=== PATIENT | female | born 1950 | race Caucasian/White ===

== ENCOUNTER 2018-05-15 05:50 | Emergency (ER) | payer MEDICAID ==
[~2018-05-15] VITALS: Ht 154.9 cm; Wt 83.0 kg
[~2018-05-15 05:50] MED LIST: CIPR-263
[2018-05-15] MEDS ORDERED: SODIUM CHLORIDE 0.9% 1,000 ML IV ONE (06:32)
[2018-05-15] MEDS ORDERED: KETOROLAC 30MG/ML VIAL IV STA (06:32)
[2018-05-15 07:09] LABS: BASOPHILS % 0.5 % (0.0-2.0); EOSINOPHILS % 2.8 % (0.0-5.0); HEMATOCRIT. 43.2 % (36.0-48.0); HEMOGLOBIN. 14.8 g/dL (12.0-16.0); LYMPHOCYTES % 26.2 % (20.0-50.0); MEAN CORPUSCULAR HEMOGLOBIN 31.7 pg (28.0-32.0); MEAN CORPUSCULAR VOLUME 92.7 fL (81.0-99.0); MEAN PLATELET VOLUME 9.4 fl (7.4-10.4); MONOCYTES % 9.9 % (2.0-8.0); NEUTROPHILS % 60.6 % (40.0-76.0); PLATELET 230 x1000/uL (130-400); RED BLOOD CELL COUNT 4.66 mill/uL (4.2-5.4); RED CELL DISTRIBUTION WIDTH 13.3 % (11.6-14.6)
[2018-05-15 07:15] LABS: CHLORIDE 104 mEq/L (98-107)
[2018-05-15 07:26] LABS: CLARITY URINE CLOUDY (CLEAR); COLOR URINE YELLOW (YELLOW); KETONES URINE NEGATIVE (NEGATIVE); LEUKOCYTE ESTERASE URINE TRACE (NEGATIVE); NITRITE URINE NEGATIVE (NEGATIVE); OCCULT BLOOD URINE 3+ (NEGATIVE); PROTEIN URINE NEGATIVE (NEGATIVE); SPECIFIC GRAVITY URINE 1.021 (1.005-1.030); UROBILINOGEN URINE 0.2 E.U./dL (0.2-1.0)
[2018-05-15 10:15] VITALS: BP 147/87
== END 2018-05-15 10:17 | disposition home or self-care (01) ==
LOC: ER 05:50
DX: N20.0 Calculus of kidney (principal); N23 Unspecified renal colic; M54.5 Low back pain; E11.9 Type 2 diabetes mellitus without complications; E78.00 Pure hypercholesterolemia, unspecified; Z91.041 Radiographic dye allergy status; Z91.040 Latex allergy status; Z79.899 Other long term (current) drug therapy
CPT/HCPCS: 36415; 76770; 80053; 81003; 83690; 85025; 96374; 99285; J1885; J7030; Z7610

== ENCOUNTER 2020-05-18 09:38 | Inpatient (IN) | payer MEDICARE, MEDICAID ==
[~2020-05-18] VITALS: Ht 165.1 cm; Wt 85.3 kg
[2020-05-18 10:25] LABS: BASOPHILS % 0.6 % (0.0-2.0); EOSINOPHILS % 0.7 % (0.0-5.0); HEMATOCRIT. 50.3 % (36.0-48.0); HEMOGLOBIN. 16.9 g/dL (12.0-16.0); LYMPHOCYTES % 21.5 % (20.0-50.0); MEAN CORPUSCULAR HEMOGLOBIN 31.8 pg (28.0-32.0); MEAN CORPUSCULAR VOLUME 94.3 fL (81.0-99.0); MEAN PLATELET VOLUME 10.2 fl (7.4-10.4); MONOCYTES % 7.3 % (2.0-8.0); NEUTROPHILS % 69.9 % (40.0-76.0); PLATELET 224 x1000/uL (130-400); RED BLOOD CELL COUNT 5.33 mill/uL (4.2-5.4); RED CELL DISTRIBUTION WIDTH 12.9 % (11.6-14.6)
[2020-05-18 10:30] LABS: CHLORIDE 98 mEq/L (98-107)
[2020-05-18 12:10] LABS: BG BASE EXCESS -0.2 mmol/L (-2.0-2.0); BG CARBOXYHEMOGLOBIN 0.9 % (0.5-1.5); BG DEOXYHEMOGLOBIN 5.2 % (0.0-5.0); BG FRACTION INSPIRED OXYGEN 21; BG HCO3 ACT 24.4 mmol/L (22.0-26.0); BG METHEMOGLOBIN 0.2 % (0.0-1.5); BG OXYGEN SATURATION 94.7 % (92.0-98.5); BG OXYHEMOGLOBIN 93.7 % (94.0-97.0); BG PH 7.403 (7.350-7.450); BG PO2 67.8 mmHg (75.0-100.0); BG SAMPLE SITE LEFT RADIAL; BG TOTAL HEMOGLOBIN 17.1 g/dL (12.0-18.0); BG VENT MODE ROOM AIR
[2020-05-18] MEDS: SODIUM CHLORIDE 0.9% 1,000 ML IV SCH (15:16)
[2020-05-18] MEDS ORDERED: ACETAMINOPHEN 325MG TABLET PO PRN (15:30)
[2020-05-18] MEDS ORDERED: MAGNESIUM/ALUMINUM HYDROXIDE/SIMETHICONE 30ML UDC PO PRN (15:30)
[2020-05-18] MEDS ORDERED: CLONIDINE 0.1MG TABLET PO PRN (15:30)
[2020-05-18] MEDS ORDERED: ENOXAPARIN 40MG/0.4ML SYR SUBCUT SCH (15:30)
[2020-05-18] MEDS ORDERED: GUAIFENESIN 200MG/10ML SUGAR FREE UDC PO PRN (15:30)
[2020-05-18] MEDS ORDERED: ONDANSETRON HCL 4MG/2ML INJ IV PRN (15:30)
[2020-05-18] MEDS ORDERED: DOCUSATE SODIUM 100MG CAPSULE PO PRN (15:30)
[2020-05-18] MEDS ORDERED: DEXTROSE 50% WATER 50ML SYRINGE IV PRN (21:15)
[2020-05-18 21:30] VITALS: BP 119/53
[2020-05-18] MEDS: BLOOD SUGAR DIAGNOSTIC STRIP TEST SCH (22:17)
[2020-05-18] MEDS: INSULIN LISPRO 100 UNITS/ML SUBCUT SCH (22:20)
[2020-05-18] MEDS: ENOXAPARIN 30MG/0.3ML SYR SUBCUT SCH (22:21)
[2020-05-19] VITALS (7 sets, daily range): BP systolic 124–151; BP diastolic 67–87
[2020-05-19] MEDS: SODIUM CHLORIDE 0.9% 1,000 ML IV SCH (04:29)
[2020-05-19 06:28] LABS: BASOPHILS % 0.6 % (0.0-2.0); EOSINOPHILS % 3.3 % (0.0-5.0); HEMATOCRIT. 43.9 % (36.0-48.0); HEMOGLOBIN. 14.9 g/dL (12.0-16.0); LYMPHOCYTES % 43.8 % (20.0-50.0); MEAN CORPUSCULAR VOLUME 94.3 fL (81.0-99.0); MEAN PLATELET VOLUME 10.4 fl (7.4-10.4); MONOCYTES % 8.1 % (2.0-8.0); NEUTROPHILS % 44.2 % (40.0-76.0); PLATELET 181 x1000/uL (130-400); RED BLOOD CELL COUNT 4.65 mill/uL (4.2-5.4); RED CELL DISTRIBUTION WIDTH 13.4 % (11.6-14.6)
[2020-05-19] MEDS: BLOOD SUGAR DIAGNOSTIC STRIP TEST SCH ×2 (06:31→12:20)
[2020-05-19 06:40] LABS: CHLORIDE 103 mEq/L (98-107)
[2020-05-19 06:58] LABS: LDL CHOLESTEROL 139 mg/dL (5-100)
[2020-05-19 07:00] LABS: HDL CHOLESTEROL 43 mg/dL (40-59)
[2020-05-19 09:42] LABS: BG BASE EXCESS 1.5 mmol/L (-2.0-2.0); BG CARBOXYHEMOGLOBIN 0.7 % (0.5-1.5); BG DEOXYHEMOGLOBIN 5.2 % (0.0-5.0); BG FRACTION INSPIRED OXYGEN 21; BG HCO3 ACT 25.6 mmol/L (22.0-26.0); BG METHEMOGLOBIN 0.2 % (0.0-1.5); BG OXYGEN SATURATION 94.8 % (92.0-98.5); BG OXYHEMOGLOBIN 93.9 % (94.0-97.0); BG PCO2 38.8 mmHg (35.0-45.0); BG PH 7.437 (7.350-7.450); BG PO2 68.7 mmHg (75.0-100.0); BG SAMPLE SITE RIGHT RADIAL; BG TOTAL HEMOGLOBIN 16.1 g/dL (12.0-18.0); BG VENT MODE ROOM AIR
[2020-05-19] MEDS: INSULIN LISPRO 100 UNITS/ML SUBCUT SCH ×2 (10:40→13:40)
[2020-05-19] MEDS: ENOXAPARIN 30MG/0.3ML SYR SUBCUT SCH (11:14)
[2020-05-19] MEDS ORDERED: ATORVASTATIN CALCIUM 20MG TABLET PO SCH (21:00)
== END 2020-05-19 16:57 | disposition home or self-care (01) | DRG 74 ==
LOC: ER 09:51 → 6WST 13:40 → EDBEDREQ 13:49 → EDBEDREQTM 13:49 → ENRESERV 19:46 → 6WST 22:00
PROVIDERS: ADMIT Hospitalist; ATTEND Hospitalist
DX: G90.8 Other disorders of autonomic nervous system (principal); E11.9 Type 2 diabetes mellitus without complications; E78.00 Pure hypercholesterolemia, unspecified; I10 Essential (primary) hypertension; R09.02 Hypoxemia; Z82.49 Family history of ischemic heart disease and other diseases of the circulatory system; Z88.8 Allergy status to other drugs, medicaments and biological substances; Z91.041 Radiographic dye allergy status; Z79.2 Long term (current) use of antibiotics
CPT/HCPCS: 36415; 36600; 71045; 80053; 80061; 82375; 82805; 82962; 83036; 83880; 84484; 85025; 85379; 93005; 93306; 93970; 99285; J1650; J1815

== ENCOUNTER 2025-06-04 12:29 | Inpatient (IN) | payer MEDICARE ==
[~2025-06-04] VITALS: Ht 154.9 cm; Wt 55.3 kg
[2025-06-04 13:46] LABS: BASOPHILS % 0.4 % (0.0-2.0); EOSINOPHILS % 0.6 % (0.0-5.0); HEMATOCRIT. 50.3 % (36.0-48.0); HEMOGLOBIN. 16.9 g/dL (12.0-16.0); LYMPHOCYTES % 12.7 % (20.0-50.0); MEAN PLATELET VOLUME 9.4 fl (7.4-10.4); MONOCYTES % 8.0 % (2.0-8.0); NEUTROPHILS % 78.3 % (40.0-76.0); PLATELET 246 x1000/uL (130-400); RED BLOOD CELL COUNT 5.38 mill/uL (4.2-5.4); RED CELL DISTRIBUTION WIDTH 13.1 % (11.6-14.6)
[2025-06-04 13:55] LABS: INR 1.1
[2025-06-04] MEDS: LACTATED RINGERS IV ONE (14:03)
[2025-06-04 14:06] LABS: UREA NITROGEN BLOOD 12 mg/dL (9-23)
[2025-06-04 14:07] LABS: ASPARTATE AMINOTRANSFERASE 22 IU/L (<34)
[2025-06-04] MEDS: CEFTRIAXONE 1GM/50ML 50 ML IV ONE (14:07)
[2025-06-04 14:08] LABS: BILIRUBIN DIRECT 0.5 mg/dL (<=3.0); BILIRUBIN TOTAL 2.2 mg/dL (0.1-1.0); PROTEIN TOTAL 7.5 g/dL (6.0-8.3)
[2025-06-04 14:12] LABS: CREATININE 1.4 mg/dL (0.6-1.0)
[2025-06-04] MEDS: KETOROLAC 15MG/ML VIAL IV ONE (14:17)
[2025-06-04] MEDS: ONDANSETRON HCL 4MG/2ML INJ IV ONE (14:17)
[2025-06-04 15:08] LABS: PHOSPHORUS 3.5 mg/dL (2.5-4.9)
[2025-06-04] MEDS ORDERED: DOCUSATE SODIUM 100MG CAPSULE PO PRN (17:15)
[2025-06-04] MEDS ORDERED: IPRATROPIUM/ALBUTEROL 0.5-3(2.5)MG/3ML NEB HHN PRN ×2 (17:15)
[2025-06-04] MEDS ORDERED: ACETAMINOPHEN 325MG TABLET PO PRN ×2 (17:15)
[2025-06-04] MEDS ORDERED: ONDANSETRON HCL 4MG/2ML INJ IV PRN (17:15)
[2025-06-04] MEDS ORDERED: CLONIDINE 0.1MG TABLET PO PRN (17:15)
[2025-06-04 17:18] LABS: CLARITY URINE CLOUDY (CLEAR); COLOR URINE YELLOW (YELLOW); GLUCOSE URINE TRACE (NEGATIVE); KETONES URINE NEGATIVE (NEGATIVE); LEUKOCYTE ESTERASE URINE 3+ (NEGATIVE); NITRITE URINE POSITIVE (NEGATIVE); OCCULT BLOOD URINE 1+ (NEGATIVE); PH URINE 5.5 (4.5-8.0); PROTEIN URINE 1+ (NEGATIVE); SPECIFIC GRAVITY URINE 1.009 (1.005-1.030); UROBILINOGEN URINE 0.2 E.U./dL (0.2-1.0)
[2025-06-04 17:30] LABS: BACTERIA URINE 2+; SQUAMOUS EPITHELIAL CELL URINE 2+ /lpf (RARE/1+); WBC URINE TNTC /hpf (0-2)
[2025-06-04] MEDS ORDERED: DEXTROSE 50% WATER 50ML SYRINGE IV PRN (18:00)
[2025-06-04 20:00] VITALS: BP 137/63; PULSE 78; RESP 18; TEMP 36.696
[2025-06-04] MEDS: INSULIN LISPRO 100 UNITS/ML SUBCUT SCH (21:00)
[2025-06-04] MEDS: VANCOMYCIN 1.25GM/250ML IV SCH (21:08)
[2025-06-04] MEDS: SODIUM CHLORIDE 0.9% 1,000 ML IV SCH (21:09)
[2025-06-04] MEDS: BLOOD SUGAR DIAGNOSTIC STRIP TEST SCH (21:14)
[2025-06-04] MEDS: PIPERACILLIN/TAZO 3.375G/50ML 50 ML IV SCH (21:20)
[2025-06-05] VITALS (16 sets, daily range): BP systolic 123–165; BP diastolic 56–85; PULSE 75–90; RESP 15–19; TEMP 35.9–36.8; O2SAT 94–98
[2025-06-05 07:45] LABS: CREATININE 1.3 mg/dL (0.6-1.0); TRIGLYCERIDE 119.0 mg/dL (0-150); UREA NITROGEN BLOOD 13.0 mg/dL (9-23)
[2025-06-05 07:46] LABS: BASOPHILS % 0.4 % (0.0-2.0); EOSINOPHILS % 3.1 % (0.0-5.0); HEMATOCRIT. 44.7 % (36.0-48.0); HEMOGLOBIN. 15.0 g/dL (12.0-16.0); LDL CHOLESTEROL 116.0 mg/dL (5-100); LYMPHOCYTES % 20.7 % (20.0-50.0); MEAN PLATELET VOLUME 9.5 fl (7.4-10.4); MONOCYTES % 10.2 % (2.0-8.0); NEUTROPHILS % 65.6 % (40.0-76.0); PLATELET 193 x1000/uL (130-400); RED BLOOD CELL COUNT 4.84 mill/uL (4.2-5.4); RED CELL DISTRIBUTION WIDTH 12.9 % (11.6-14.6)
[2025-06-05 07:48] LABS: T4 FREE 1.29 ng/dL (0.89-1.76)
[2025-06-05] MEDS: ENOXAPARIN 40MG/0.4ML SYR SUBCUT SCH (08:54)
[2025-06-05] MEDS: PANTOPRAZOLE SODIUM 40 MG/VIAL IV SCH (08:54)
[2025-06-05 11:54] LABS: *AMPHETAMINES SCREEN URINE NEGATIVE (NEGATIVE); *BENZODIAZEPINES SCREEN URINE NEGATIVE (NEGATIVE)
[2025-06-05 11:55] LABS: *BARBITURATES SCREEN URINE NEGATIVE (NEGATIVE); *COCAINE SCREEN URINE NEGATIVE (NEGATIVE); CANNABINOID URINE SCREEN NEGATIVE (NEGATIVE); ECSTASY MDMA SCREEN URINE NEGATIVE (NEGATIVE); METHADONE URINE SCREEN NEGATIVE (NEGATIVE); OPIATES URINE SCREEN NEGATIVE (NEGATIVE); PHENCYCLIDINE URINE SCREEN NEGATIVE (NEGATIVE)
[2025-06-05] MEDS ORDERED: LIDOCAINE HCL 1% 10 MG/ML 10ML VIAL ONE (12:22)
[2025-06-05] MEDS ORDERED: IOHEXOL-300 50 ML BOTTLE IV ONE (12:22)
[2025-06-05] MEDS ORDERED: GADOTERATE MEGLUMINE 5 MMOL/10 ML VIAL IV ONE (12:26)
[2025-06-05] MEDS: FENTANYL CITRATE/PF 50MCG/ML 2ML VIAL IV ONE (12:40)
[2025-06-05] MEDS ORDERED: FENTANYL CITRATE/PF 50MCG/ML 2ML VIAL ONE (12:43)
[2025-06-05] MEDS ORDERED: KETOROLAC 15MG/ML VIAL IV PRN (15:15)
[2025-06-05] MEDS: TAMSULOSIN HCL 0.4MG SR CAPSULE PO SCH (16:10)
[2025-06-05] MEDS: VANCOMYCIN 750MG/150ML (BAXTER) IV SCH (21:57)
[2025-06-06] VITALS: BP 127/81; PULSE 107; RESP 19; TEMP 36.3; O2SAT 95
[2025-06-06 08:00] VITALS: BP 138/79; PULSE 89; RESP 18; TEMP 36.5; O2SAT 97
[2025-06-06 08:17] LABS: PLATELET 192 x1000/uL (130-400); RED BLOOD CELL COUNT 4.73 mill/uL (4.2-5.4); RED CELL DISTRIBUTION WIDTH 13.2 % (11.6-14.6)
[2025-06-06 08:42] LABS: CREATININE 0.8 mg/dL (0.6-1.0)
[2025-06-06 08:43] LABS: UREA NITROGEN BLOOD 10 mg/dL (9-23)
[2025-06-06 12:00] VITALS: BP 128/89; PULSE 95; RESP 18; TEMP 36.1; O2SAT 96
[2025-06-06] MEDS ORDERED: VANCOMYCIN 750MG/150ML (BAXTER) IV SCH (12:00)
[2025-06-06] MEDS: INSULIN LISPRO 100 UNITS/ML SUBCUT NR (13:26)
[2025-06-06] MEDS: INSULIN GLARGINE 100 UNITS/ML SUBCUT NR (14:47)
[2025-06-06] MEDS ORDERED: INSU100I28 SQ (16:45)
[2025-06-06] MEDS ORDERED: CIPR250T4 MT (16:45)
[2025-06-06 17:25] VITALS: BP 128/89; PULSE 95; RESP 18; TEMP 97.1
== END 2025-06-06 19:00 | disposition home or self-care (01) | DRG 871 ==
LOC: ER 12:29 → EDBEDREQTM 16:01 → EDBEDREQSVC 16:01 → EDBEDREQ 16:01 → 6EST 18:08
PROVIDERS: ADMIT Internal Medicine; ATTEND Internal Medicine
PROC: 0T9430Z Drainage of Left Kidney Pelvis with Drainage Device, Percutaneous Approach (ICD-10-PCS; principal; 2025-06-05)
DX: A41.9 Sepsis, unspecified organism (principal); R65.21 Severe sepsis with septic shock; E87.1 Hypo-osmolality and hyponatremia; N13.6 Pyonephrosis; N17.9 Acute kidney failure, unspecified; E78.5 Hyperlipidemia, unspecified; I10 Essential (primary) hypertension; K74.60 Unspecified cirrhosis of liver; E11.9 Type 2 diabetes mellitus without complications; E86.0 Dehydration; D25.9 Leiomyoma of uterus, unspecified; Z87.442 Personal history of urinary calculi; Z93.6 Other artificial openings of urinary tract status; Z82.3 Family history of stroke; Z83.3 Family history of diabetes mellitus; Z87.891 Personal history of nicotine dependence
CPT/HCPCS: 36415; 50432; 71045; 74176; 80048; 80061; 80076; 80202; 80305; 81003; 82550; 82962; 83605; 83735; 84100; 84145; 84439; 84443; 85025; 85027; 93005; 96361; 96365; 96366; 96375; 99152; 99153; 99291; A9577; C1729; C1769; J0696; J1650; J1815; J1885; J2003; J2405; J2470; J2543; J3010; J3373; J7120; Q9967; G0500

== ENCOUNTER 2025-06-07 16:54 | Emergency (ER) | payer MEDICARE ==
[~2025-06-07] VITALS: Ht 154.9 cm; Wt 73.0 kg
[~2025-06-07 16:54] MED LIST changes: -CIPR-263; +CIPR250T4 MT; +INSU100I28 SQ
[2025-06-07 17:05] VITALS: O2SAT 96
[2025-06-07 17:11] VITALS: BP 129/74; PULSE 96; RESP 18; TEMP 36.9; O2SAT 96
[2025-06-21] MEDS ORDERED: CEFP100T8 MT (01:15)
== END 2025-06-07 18:18 | disposition home or self-care (01) ==
LOC: ER 16:54
DX: R31.9 Hematuria, unspecified (principal); E11.9 Type 2 diabetes mellitus without complications; E78.00 Pure hypercholesterolemia, unspecified; Z88.8 Allergy status to other drugs, medicaments and biological substances; Z91.013 Allergy to seafood
CPT/HCPCS: 99282

== ENCOUNTER 2025-06-18 11:31 | Emergency (ER) | payer MEDICARE ==
[~2025-06-18] VITALS: Ht 170.2 cm; Wt 91.0 kg
[2025-06-18 11:48] VITALS: O2SAT 96
[2025-06-18 12:43] VITALS: BP 116/70; PULSE 92; RESP 18; TEMP 36.8; O2SAT 96
[2025-06-21] MEDS ORDERED: CEFP100T8 MT (01:15)
== END 2025-06-18 12:46 | disposition home or self-care (01) ==
LOC: ER 11:31
DX: Z00.00 Encounter for general adult medical examination without abnormal findings (principal); E78.00 Pure hypercholesterolemia, unspecified; E11.9 Type 2 diabetes mellitus without complications; I10 Essential (primary) hypertension; Z91.013 Allergy to seafood; Z88.8 Allergy status to other drugs, medicaments and biological substances
CPT/HCPCS: 99282

== ENCOUNTER 2025-06-20 18:30 | Emergency (ER) | payer MEDICARE ==
[~2025-06-20] VITALS: Ht 167.6 cm; Wt 91.0 kg
[2025-06-20 18:41] VITALS: O2SAT 94
[2025-06-20] MEDS: ACETAMINOPHEN 500MG TABLET PO ONE (21:05)
[2025-06-20 21:24] LABS: BASOPHILS % 0.7 % (0.0-2.0); EOSINOPHILS % 3.3 % (0.0-5.0); HEMATOCRIT. 48.8 % (36.0-48.0); HEMOGLOBIN. 16.2 g/dL (12.0-16.0); LYMPHOCYTES % 19.7 % (20.0-50.0); MEAN PLATELET VOLUME 8.6 fl (7.4-10.4); MONOCYTES % 10.0 % (2.0-8.0); NEUTROPHILS % 66.3 % (40.0-76.0); PLATELET 266 x1000/uL (130-400); RED BLOOD CELL COUNT 5.21 mill/uL (4.2-5.4); RED CELL DISTRIBUTION WIDTH 13.0 % (11.6-14.6)
[2025-06-20 21:36] LABS: CREATININE 1.0 mg/dL (0.6-1.0); UREA NITROGEN BLOOD 11.0 mg/dL (9-23)
[2025-06-20 22:49] LABS: CLARITY URINE CLOUDY (CLEAR); COLOR URINE DARK YELLOW (YELLOW); GLUCOSE URINE NEGATIVE (NEGATIVE); KETONES URINE TRACE (NEGATIVE); LEUKOCYTE ESTERASE URINE 2+ (NEGATIVE); NITRITE URINE NEGATIVE (NEGATIVE); OCCULT BLOOD URINE 1+ (NEGATIVE); PH URINE 5.0 (4.5-8.0); PROTEIN URINE TRACE (NEGATIVE); SPECIFIC GRAVITY URINE 1.020 (1.005-1.030); UROBILINOGEN URINE 1.0 E.U./dL (0.2-1.0)
[2025-06-20 23:10] LABS: WBC URINE 15-25 /hpf (0-2)
[2025-06-20 23:11] LABS: BACTERIA URINE 1+; SQUAMOUS EPITHELIAL CELL URINE 1+ /lpf (RARE/1+); YEAST URINE 2+
[2025-06-20 23:17] VITALS: BP 107/77; PULSE 108; RESP 16; TEMP 36.9; O2SAT 95
[2025-06-21] MEDS ORDERED: CEFP100T8 MT (01:15)
== END 2025-06-20 23:20 | disposition home or self-care (01) ==
LOC: ER 18:30 → CMPBEDREQ 06-21 08:46
DX: T83.022A Displacement of nephrostomy catheter, initial encounter (principal); N39.0 Urinary tract infection, site not specified; E11.9 Type 2 diabetes mellitus without complications; E78.00 Pure hypercholesterolemia, unspecified; T83.012A Breakdown (mechanical) of nephrostomy catheter, initial encounter; Z87.442 Personal history of urinary calculi; Z88.8 Allergy status to other drugs, medicaments and biological substances; Z90.49 Acquired absence of other specified parts of digestive tract; Z91.013 Allergy to seafood; W19.XXXA Unspecified fall, initial encounter; Y93.89 Activity, other specified; Y73.2 Prosthetic and other implants, materials and accessory gastroenterology and urology devices associated with adverse incidents; Y99.8 Other external cause status
CPT/HCPCS: 36415; 72131; 74176; 80048; 81003; 85025; 87077; 87106; 87186; 99284

== ENCOUNTER 2025-06-23 11:27 | Emergency (ER) | payer MEDICARE ==
[~2025-06-23] VITALS: Ht 162.6 cm; Wt 60.0 kg
[~2025-06-23 11:27] MED LIST changes: +CEFP100T8 MT
[2025-06-23 11:46] VITALS: O2SAT 100
[2025-06-23 16:22] VITALS: BP 105/62; PULSE 110; RESP 15; TEMP 37; O2SAT 100
== END 2025-06-23 16:23 | disposition home or self-care (01) ==
LOC: ER 11:27
DX: T83.092A Other mechanical complication of nephrostomy catheter, initial encounter (principal); E78.00 Pure hypercholesterolemia, unspecified; E11.9 Type 2 diabetes mellitus without complications; Z87.440 Personal history of urinary (tract) infections; Z87.442 Personal history of urinary calculi; Z91.013 Allergy to seafood; Z88.8 Allergy status to other drugs, medicaments and biological substances; Y92.89 Other specified places as the place of occurrence of the external cause
CPT/HCPCS: 99282

== ENCOUNTER 2025-07-09 11:51 | Inpatient (IN) | payer MEDICARE, MEDICAID ==
[~2025-07-09] VITALS: Ht 152.4 cm; Wt 73.6 kg
[2025-07-09 12:11] VITALS: O2SAT 94
[2025-07-09] MEDS: SODIUM CHLORIDE 0.9% 1,000 ML IV ONE (13:09)
[2025-07-09 13:17] LABS: BASOPHILS % 0.9 % (0.0-2.0); EOSINOPHILS % 5.5 % (0.0-5.0); HEMATOCRIT. 49.5 % (36.0-48.0); HEMOGLOBIN. 16.9 g/dL (12.0-16.0); LYMPHOCYTES % 19.4 % (20.0-50.0); MEAN PLATELET VOLUME 8.9 fl (7.4-10.4); MONOCYTES % 8.8 % (2.0-8.0); NEUTROPHILS % 65.4 % (40.0-76.0); PLATELET 235 x1000/uL (130-400); RED BLOOD CELL COUNT 5.37 mill/uL (4.2-5.4); RED CELL DISTRIBUTION WIDTH 13.0 % (11.6-14.6)
[2025-07-09 13:19] LABS: INR 1.2
[2025-07-09 13:29] LABS: CREATININE 1.0 mg/dL (0.6-1.0); UREA NITROGEN BLOOD 9.0 mg/dL (9-23)
[2025-07-09 13:30] LABS: ASPARTATE AMINOTRANSFERASE 22 IU/L (<34); BILIRUBIN DIRECT 0.5 mg/dL (<=3.0); BILIRUBIN TOTAL 1.5 mg/dL (0.1-1.0)
[2025-07-09 13:31] LABS: PROTEIN TOTAL 7.4 g/dL (6.0-8.3)
[2025-07-09] MEDS ORDERED: POTASSIUM CHLORIDE 20MEQ TABLET SR PO NR (14:00)
[2025-07-09] MEDS: POTASSIUM CHLORIDE 20MEQ/PACKET PO SCH (15:32)
[2025-07-09] MEDS ORDERED: HYDROCODONE/ACETAMINOPHEN 5/325MG TABLET PO PRN (19:30)
[2025-07-09] MEDS ORDERED: ZOLPIDEM TARTRATE 5MG TABLET PO PRN (19:30)
[2025-07-09] MEDS ORDERED: MAGNESIUM/ALUMINUM HYDROXIDE/SIMETHICONE 30ML UDC PO PRN (19:30)
[2025-07-09] MEDS ORDERED: ACETAMINOPHEN 325MG TABLET PO PRN (19:30)
[2025-07-09] MEDS ORDERED: MORPHINE SULFATE 2 MG/ML INJ (NOT FOR IM USE) IV PRN (19:30)
[2025-07-09] MEDS ORDERED: CLONIDINE 0.1MG TABLET PO PRN (19:30)
[2025-07-09] MEDS ORDERED: ONDANSETRON HCL 4MG/2ML INJ IV PRN (19:30)
[2025-07-09] MEDS ORDERED: NALOXONE HCL 0.4MG/ML VIAL IV PRN (19:45)
[2025-07-09 20:00] VITALS: BP 112/70; PULSE 98; RESP 20; TEMP 36.1; O2SAT 95
[2025-07-09] MEDS: DEXT 5%/0.45% NACL 1000ML 1,000 ML IV SCH (23:28)
[2025-07-10] VITALS (7 sets, daily range): BP systolic 112–131; BP diastolic 60–72; PULSE 79–101; RESP 17–20; TEMP 35.6–36.5; O2SAT 95–97
[2025-07-10 06:29] LABS: BASOPHILS % 1.1 % (0.0-2.0); EOSINOPHILS % 11.1 % (0.0-5.0); HEMATOCRIT. 42.6 % (36.0-48.0); HEMOGLOBIN. 14.6 g/dL (12.0-16.0); LYMPHOCYTES % 27.6 % (20.0-50.0); MEAN PLATELET VOLUME 8.8 fl (7.4-10.4); MONOCYTES % 11.5 % (2.0-8.0); NEUTROPHILS % 48.7 % (40.0-76.0); PLATELET 184 x1000/uL (130-400); RED BLOOD CELL COUNT 4.66 mill/uL (4.2-5.4); RED CELL DISTRIBUTION WIDTH 13.0 % (11.6-14.6)
[2025-07-10 06:51] LABS: CREATININE 0.7 mg/dL (0.6-1.0)
[2025-07-10 06:52] LABS: UREA NITROGEN BLOOD 7 mg/dL (9-23)
[2025-07-10] MEDS: PANTOPRAZOLE SODIUM 40 MG/VIAL IV SCH (10:12)
[2025-07-10] MEDS: VANCOMYCIN 125MG/2.5ML ORAL SYR PO SCH (12:51)
[2025-07-10] MEDS: KCL 20MEQ/100ML PREMIX 100 ML IV SCH (13:05)
[2025-07-10] MEDS ORDERED: DEXTROSE 50% WATER 50ML SYRINGE IV PRN (18:30)
[2025-07-10] MEDS: BLOOD SUGAR DIAGNOSTIC STRIP TEST SCH (21:07)
[2025-07-10] MEDS: INSULIN LISPRO 100 UNITS/ML SUBCUT SCH (21:54)
[2025-07-11] VITALS: BP 116/77; PULSE 89; RESP 18; TEMP 36.4; O2SAT 98
[2025-07-11 04:00] VITALS: BP 112/70; PULSE 86; RESP 18; TEMP 36.2; O2SAT 96
[2025-07-11 08:00] VITALS: BP 138/76; PULSE 86; RESP 17; TEMP 36; O2SAT 97
[2025-07-11 08:13] LABS: BASOPHILS % 0.6 % (0.0-2.0); EOSINOPHILS % 13.1 % (0.0-5.0); HEMATOCRIT. 43.3 % (36.0-48.0); HEMOGLOBIN. 14.6 g/dL (12.0-16.0); LYMPHOCYTES % 23.8 % (20.0-50.0); MEAN PLATELET VOLUME 8.8 fl (7.4-10.4); MONOCYTES % 11.0 % (2.0-8.0); NEUTROPHILS % 51.5 % (40.0-76.0); PLATELET 199 x1000/uL (130-400); RED BLOOD CELL COUNT 4.75 mill/uL (4.2-5.4); RED CELL DISTRIBUTION WIDTH 13.1 % (11.6-14.6)
[2025-07-11 08:27] LABS: CREATININE 0.6 mg/dL (0.6-1.0)
[2025-07-11 08:28] LABS: UREA NITROGEN BLOOD < 5 mg/dL (9-23)
[2025-07-11] MEDS ORDERED: POTASSIUM CHLORIDE 40 MEQ in DEXT 5% WATER 230 ML IV ONE (09:15)
[2025-07-11] MEDS: KCL 20MEQ/100ML X 2 FOR TOTAL KCL 40MEQ/200ML IV SCH (10:33)
[2025-07-11] MEDS: DEXT 5%/0.9% NACL KCL 20MEQ/L 1,000 ML IV SCH (10:54)
[2025-07-11 12:00] VITALS: BP 128/73; PULSE 100; RESP 19; TEMP 36.7; O2SAT 96
[2025-07-11 16:00] VITALS: BP 109/73; PULSE 106; RESP 18; TEMP 36.7; O2SAT 94
[2025-07-11 20:00] VITALS: BP 118/78; PULSE 96; RESP 18; TEMP 35.8; O2SAT 95
[2025-07-11] MEDS: MAGNESIUM 4 G PREMIX 100 ML IV SCH (21:43)
[2025-07-12] VITALS: BP 112/66; PULSE 95; RESP 18; TEMP 36.3; O2SAT 97
[2025-07-12 04:00] VITALS: BP 120/72; PULSE 88; RESP 18; TEMP 36.2; O2SAT 97
[2025-07-12 06:08] LABS: BASOPHILS % 0.9 % (0.0-2.0); EOSINOPHILS % 13.8 % (0.0-5.0); HEMATOCRIT. 42.0 % (36.0-48.0); HEMOGLOBIN. 14.4 g/dL (12.0-16.0); LYMPHOCYTES % 26.8 % (20.0-50.0); MEAN PLATELET VOLUME 8.3 fl (7.4-10.4); MONOCYTES % 12.8 % (2.0-8.0); NEUTROPHILS % 45.7 % (40.0-76.0); PLATELET 178 x1000/uL (130-400); RED BLOOD CELL COUNT 4.61 mill/uL (4.2-5.4); RED CELL DISTRIBUTION WIDTH 13.0 % (11.6-14.6)
[2025-07-12 06:15] LABS: CREATININE 0.6 mg/dL (0.6-1.0)
[2025-07-12 06:16] LABS: UREA NITROGEN BLOOD < 5 mg/dL (9-23)
[2025-07-12 08:00] VITALS: BP 132/80; PULSE 92; RESP 18; TEMP 36.3; O2SAT 95
[2025-07-12] MEDS ORDERED: VANC125C11 MT (10:13)
[2025-07-12 12:00] VITALS: BP 128/80; PULSE 82; RESP 18; TEMP 36.5; O2SAT 96
[2025-07-12 14:45] VITALS: BP 128/75; PULSE 87; RESP 16; TEMP 97.1
== END 2025-07-12 16:45 | disposition home or self-care (01) | DRG 372 ==
LOC: ER 11:51 → EDBEDREQ 17:17 → EDBEDREQSVC 17:17 → EDBEDREQTM 17:17 → 6WST 17:53
PROVIDERS: ADMIT Internal Medicine; ATTEND Internal Medicine
DX: A04.72 Enterocolitis due to Clostridium difficile, not specified as recurrent (principal); E87.1 Hypo-osmolality and hyponatremia; E87.20 Acidosis, unspecified; N17.9 Acute kidney failure, unspecified; K62.5 Hemorrhage of anus and rectum; I10 Essential (primary) hypertension; E11.9 Type 2 diabetes mellitus without complications; K76.0 Fatty (change of) liver, not elsewhere classified; N13.30 Unspecified hydronephrosis; N20.2 Calculus of kidney with calculus of ureter; E86.0 Dehydration; E80.6 Other disorders of bilirubin metabolism; E78.00 Pure hypercholesterolemia, unspecified; L22 Diaper dermatitis; Z87.442 Personal history of urinary calculi; Z90.49 Acquired absence of other specified parts of digestive tract; Z93.6 Other artificial openings of urinary tract status; Z88.8 Allergy status to other drugs, medicaments and biological substances; Z79.899 Other long term (current) drug therapy; Z87.440 Personal history of urinary (tract) infections
CPT/HCPCS: 36415; 74176; 76700; 80048; 80076; 82962; 83735; 84145; 84443; 85025; 86850; 86900; 87015; 87045; 87427; 87449; 87493; 93970; 99285; J1815; J2470; J3373; J3475; J3480; J7030